=== PATIENT | female | born 1995 | race Caucasian/White ===

== ENCOUNTER 2019-11-06 08:51 | Day surgery (SDC) | payer OTHER, SELFPAY ==
[2019-11-01 06:47] LABS: BASOPHILS # (AUTO) 0.1 K/uL (0.00-0.22); EOSINOPHILS # (AUTO) 0.2 K/uL (0-0.4); EOSINOPHILS % (AUTO) 1.7 % (0.0-4.0); HEMATOCRIT 39.8 % (36-48); HEMOGLOBIN 13.5 g/dL (12.0-16.0); LYMPHOCYTES # (AUTO) 3.5 K/uL (2.5-16.5); LYMPHOCYTES % (AUTO) 38.5 % (20.5-51.1); MEAN CORPUSCULAR HEMOGLOBIN 30 pg (27-31); MEAN CORPUSCULAR HGB CONC 34 g/dL (33-37); MEAN CORPUSCULAR VOLUME 87.5 fL (80-94); MONOCYTES # (AUTO) 0.6 K/uL (0.8-1.0); MONOCYTES % (AUTO) 6.4 % (1.7-9.3); NEUTROPHILS # (AUTO) 4.7 K/uL (1.8-7.7); NEUTROPHILS % (AUTO) 52.4 % (42.2-75.2); PLATELET COUNT (AUTO) 179 K/uL (140-450); RED BLOOD CELL COUNT(AUTO) 4.55 MIL/uL (4.20-5.40); RED CELL DISTRIBUTION WIDTH 13.1 % (11.6-13.7)
[~2019-11-06] VITALS: Ht 170.2 cm; Wt 102.1 kg
[~2019-11-06 08:51] MED LIST: BUPIVACAINE-MPF 0.25% 30 ML VIAL INJ ONE; GELATIN SPONGE 100 1 SPG TP ONE; HYDROGEN PEROXIDE 3% 240 ML BTL TP ONE; LIDOCAINE 1% 500 MG/50 ML VIAL ONE
[2019-11-06] MEDS ORDERED: LIDOCAINE 1% 500 MG/50 ML VIAL ONE (10:27)
[2019-11-06] MEDS ORDERED: GELATIN SPONGE 100 1 SPG TP ONE (10:27)
[2019-11-06] MEDS ORDERED: BUPIVACAINE-MPF 0.25% 30 ML VIAL INJ ONE (10:27)
[2019-11-06] MEDS ORDERED: DESFLURANE 240 ML BTL INH ONE (11:28)
[2019-11-06] MEDS ORDERED: GLYCOPYRROLATE 0.2 MG/ML VIAL ONE (11:28)
[2019-11-06] MEDS ORDERED: PROPOFOL 200 MG/20 ML VIAL IV ONE (11:28)
[2019-11-06] MEDS ORDERED: ROCURONIUM 50 MG/5 ML VIAL IV ONE (11:28)
[2019-11-06] MEDS ORDERED: SUCCINYLCHOLINE CHLORIDE 200 MG/10 ML VIAL IVP ONE (11:28)
[2019-11-06] MEDS ORDERED: NEOSTIGMINE 1:1000 10 MG/10 ML VIAL ONE (11:28)
[2019-11-06] MEDS ORDERED: HYDROmorphone PFS 2 MG/ML SYR ONE (12:40)
[2019-11-06] MEDS: HYDROmorphone 1 MG/ML AMP IVP PRN ×4 (12:40→13:10)
[2019-11-06] MEDS ORDERED: LACTATED RINGERS 1,000 ML IV SCH (12:50)
[2019-11-06] MEDS ORDERED: KETOROLAC 60 MG/2 ML VIAL IM SCH (13:00)
== END 2019-11-06 14:45 | disposition home or self-care (01) ==
LOC: MDS 08:51 → MMU 08:52 → MDS 14:45
PROVIDERS: ATTEND Surgery
DX: K64.8 Other hemorrhoids (principal); E66.01 Morbid (severe) obesity due to excess calories
CPT/HCPCS: 36415; 46260; 84702; 84703; 85025; 87635; 88304; J0330; J1170; J2001; J2704; J2710; J3490; J7120